=== PATIENT | male | born 1990 | race Caucasian/White ===

== ENCOUNTER 2023-06-12 06:22 | Day surgery (SDC) | payer BC ==
[~2023-06-12] VITALS: Ht 177.8 cm; Wt 102.8 kg
[~2023-06-12 06:22] MED LIST: AMOXICILLIN 8751 TAB PO; FLOMAX 0.40.4 MG/CAP PO; Glycopyrrolate 0.2 MG/ML 1 ML VIAL ONE; LR 1,000 ML IV SCH; Lidocaine PF 2% (20 MG/ML) 5 ML VIAL ONE; NORCO 325 MG-51 TAB PO; OXYCODONE HCL5 MG PO; Ondansetron 4 MG/2 ML VIAL IV PRN; TYLENOL COLD &1 PDR
[2023-06-12] MEDS ORDERED: TUMS500 MG PO (06:46)
[2023-06-12] MEDS ORDERED: COZAAR 50MG50 MG/TAB PO (06:47)
[2023-06-12 07:10] VITALS: BP 132/89; PULSE 92; TEMP 98.7
[2023-06-12 08:30] VITALS: BP 142/96; PULSE 81; TEMP 98.2
[2023-06-12 08:45] VITALS: BP 138/90; PULSE 80
--- NOTE | 2023-06-12 17:35 | NUR ---
[id number]: PT TO RECOVERY BAY 2 FROM ENDO S/P COLONOSCOPY A&O, PLACED ON MONITOR, VSS ON RA RECEIVED REPORT AND ASSUMED CARE OF PT FROM GOVIND BANEGAS AT BEDSIDE PROVIDED FOOD/FLUIDS, TOLERATING WELL DR IN TO SPEAK WITH PT FOLLOWING PROCEDURE PT HAS REMAINED A&O, NAD, VSS ON RA, TOLERATING PO, IS WITHOUT SIGNIFICANT COMPLAINT, WITH STEADY GAIT THRU OUT STAY IV D/C'D. D/C INSTRUCTIONS, ANY FOLLOW UP REVIEWED AND HANDED TO PT. ALL QUESTIONS AND CONCERNS ADDRESSED TO PT SATISFACTION. TAKEN TO EXIT VIA W/C WITH ALL BELONGINGS AND PAPERWORK IN HAND, ASSISTED INTO PASSENGER SEAT OF POV. FAMILY TO DRIVE HOME.
== END 2023-06-12 08:55 | disposition home or self-care (01) ==
LOC: SDCO 06:22
DX: K61.2 Anorectal abscess (principal); K62.89 Other specified diseases of anus and rectum; R19.7 Diarrhea, unspecified
CPT/HCPCS: J2704; J7120